=== PATIENT | female | born 1975 | race Caucasian/White ===

== ENCOUNTER 2017-01-11 11:25 | Observation (INO) | payer MEDICARE, OTHER ==
--- NOTE | ~2017-01-11 | OP ---
Record Of Operation [facility] [address] [place]. [address] NAME: HOSSEIN RODRÍGUEZ : 71 STATUS : ADM Sneha PAT#: [id number] AGE: 41 ADM/REG DATE : 01/11/17 MR#: [id number] REPORT SERV DATE: 01/11/17 DICTATED BY: FRANKO SERVIN DATE: 01/11/17 REPORT STATUS : Draft TRANSCRIBED BY: MODL DATE: 01/11/17 DATE OF PROCEDURE: 01/11/2017 PREOPERATIVE DIAGNOSIS: Ovarian mass. POSTOPERATIVE DIAGNOSIS: Bilateral ovarian cyst with multiple adhesions. PROCEDURE: 1. Laparoscopic lysis of adhesions CPT code 10774. 2. Bilateral salpingo-oophorectomy, CPT code 71453. SURGEON: Franko Servin M.D. and Mena Vasquez MD. ESTIMATED BLOOD LOSS: 100 mL. FLUIDS IN: 1600 mL of crystalloid. ANESTHESIA: General endotracheal. INDICATION AND FINDINGS: This is a 41-year-old female, who has had multiple previous abdominal procedures including hysterectomy and repair of ventral hernia with a large piece of mesh. She now has multiple adhesions of the colon and omentum to the anterior abdominal wall. Five laparoscopic trocars were placed in various places throughout the abdomen as so the robotic instrument could be used. She had extensive lysis of adhesions which encompassed greater than 90% of the entire operative time to remove. Both ovaries were ultimately removed including the gonadal vessel from the pelvic brim inferior. On the left, there were extensive adhesions of the colon. The ureter was also displaced laterally to avoid injury. Ultimately again both ovaries were removed and examined on the back table and appeared to be benign. Postprocedure, a cystoscopy was performed with excellent bilateral ureteral jets. No evidence of bladder defect. Prior to the induction of anesthesia, the patient was given Lovenox for DVT prophylaxis. PROCEDURE IN DETAIL: The patient was taken to the operating room. She was placed in supine position for administration of general anesthesia. She was then placed in dorsal lithotomy position and prepped and draped in usual sterile fashion. Initially, an incision was made in the midline and carried down to the underlying layer of fascia. Through this incision, we were not able to get in the abdomen. Therefore, a second incision was made over the left upper quadrant, carried down to the underlying layer of fascia. The fascia was incised. Rectus muscles the perineum, tented up and entered sharply, and laparoscopic trocar was placed under direct visualization. Additional 12 mm and two 8 mm trocars were placed, all under direct visualization, and both the original sites were examined without damage to the bowel. At this point, lysis of adhesions was undertaken using straight laparoscopic techniques as so the robotic machine could be used. Once the adhesions were adequately displaced, the patient was docked to the laparoscopic robotic instrument. Record Of Operation [facility] [address] [facility] [address] [place]. [address] NAME: HOSSEIN RODRÍGUEZ : 71 STATUS : ADM Sneha PAT#: [id number] AGE: 41 ADM/REG DATE : 01/11/17 MR#: [id number] REPORT SERV DATE: 01/11/17 DICTATED BY: FRANKO SERVIN DATE: 01/11/17 REPORT STATUS : Draft TRANSCRIBED BY: MODL DATE: 01/11/17 Additional lysis of adhesions was undertaken specifically on the left and right side of the pelvis. The retroperitoneal spaces were opened. The ureter and pelvic vessels were clearly identified. The gonadal vessels were isolated, and hemoclips were placed to ensure long- term hemostasis. Extensive lysis of adhesions on the left to displace the colon and ureter were then performed, and then both ovaries were removed placed into EndoCatch bags and delivered through the trocar sites. The pelvis was irrigated with copious amounts of warm water. Because of the extensive dissection on the left, Evicel was placed over the dissection area to ensure long-term hemostasis. At the completion of the procedure, a cystoscopy was performed with excellent bilateral ureteral jets. No evidence of bladder defect. At the completion of the procedure, air was also placed through the colon to ensure there was no damage to the colon. The laparoscopic instruments were removed. The gas was expelled from the abdomen. The initial incision was closed with 0 Vicryl in the fascia. The remainder of the incisions were closed with 4-0 Vicryl at the skin and Dermabond was placed. A cystoscopy was performed with the above findings noted. At the completion of the procedure, the anesthesia was reversed. The patient was extubated and brought to the recovery room in stable condition. JONATHAN/SARA Franko Servin M.D. / [id number] CC: Rosy Garrido D.O. F.A.C.P.
[~2017-01-11 11:25] MED LIST: ADDER10 PO; ADDERXR25 PO; AMIT25 PO; AMOX250 PO; ASAB PO; BAC PO; ESKALITH PO; HARD NAILS PO; HORMONE PO; HUMULIN R500 UNIT/1; HUMULIN U; IBU800 PO; LEVSINTAB PO; LOP25 PO; LORTAB 5 PO; LOVENOX SC; LOVENOX1C SC; LYRICA50 PO; NORCO1 TAB PO; PEP20 PO; PERCOCET1 TA4 PO; POTASSIUM OTC PO; PR12.5 PO; PRILO PO; PRILOSEC40 MG PO; PROGESTERONE PO; PYR200 PO; SAVELLA50 MG PO; SYN.05 PO; TOPAMAX100 PO; VESICARE5 PO; VITAMIN D31000 UNIT PO; VOLTAREN1 % TOP; ZANAFLEX 4 MG TA4 MG PO; ZANAFLEX2 MG PO; ZOFRAN4 PO; ZOL100 PO; ZONEGRAN PO; [UNRECOGNIZED DRUG - CODE] PO
[2017-01-11 12:02] LABS: BASOPHILS 0.2 %; BASOPHILS ABSOLUTE 0.02 10/3/uL (0.0-0.16); EOSINOPHILS ABSOLUTE 0.26 10/3/uL (0.0-0.53); HEMOGLOBIN 13.5 g/dL (12.0-16.0); IMMATURE GRANULOCYTES 0.2 %; IMMATURE GRANULOCYTES ABSOLUTE 0.03 10/3/uL (0.0-0.11); LYMPHOCYTES 31.3 %; LYMPHOCYTES ABSOLUTE 3.97 10/3/uL (0.67-4.30); MEAN CORPUSCULAR HEMOGLOB 28.4 pg (26.0-34.0); MEAN PLATELET VOLUME 8.8 fL (9.2-13.0); MONOCYTES 2.9 %; MONOCYTES ABSOLUTE 0.37 10/3/uL (0.21-1.20); NEUTROPHILS 63.4 %; NEUTROPHILS ABSOLUTE 8.05 10/3/uL (2.02-8.40); PLATELET COUNT 298 10/3/uL (150-400); RBC DISTRIBUTION WIDTH 13.6 % (12.0-16.0); RED CELL COUNT 4.76 10/6/uL (4.0-5.6); WHITE BLOOD CELLS 12.7 10/3/uL (4.5-10.5)
[2017-01-11 12:03] LABS: MANUAL DIFF NO %; MEAN CORPUS HGB CONC 33.8 g/dL (32.0-36.0)
[2017-01-11 12:13] LABS: BUN (BLOOD UREA NITROGEN) 9 MG/DL (6-23); CHLORIDE, SERUM 106 MMOL/L (96-112); CO2 (CARBON DIOXIDE) 27 MMOL/L (24-34); CREATININE 0.83 MG/DL (0.55-1.02); GFR AFRICAN AMERICAN 100 ML/MIN (>=60); GFR NON AFRICAN AMERICAN 86 ML/MIN (>=60); GLUCOSE, SERUM 151 MG/DL (60-99); POTASSIUM, SERUM 3.8 MMOL/L (3.5-5.3); SODIUM, SERUM 140 MMOL/L (135-148)
[2017-01-12 05:56] LABS: BUN (BLOOD UREA NITROGEN) 9 MG/DL (6-23); CALCIUM, SERUM 8.6 MG/DL (8.5-10.4); CHLORIDE, SERUM 106 MMOL/L (96-112); CO2 (CARBON DIOXIDE) 25 MMOL/L (24-34); CREATININE 0.84 MG/DL (0.55-1.02); GFR AFRICAN AMERICAN 99 ML/MIN (>=60); GFR NON AFRICAN AMERICAN 85 ML/MIN (>=60); GLUCOSE, SERUM 170 MG/DL (60-99); POTASSIUM, SERUM 3.8 MMOL/L (3.5-5.3); SODIUM, SERUM 141 MMOL/L (135-148)
[2017-01-12 07:07] LABS: BASOPHILS 0.1 %; BASOPHILS ABSOLUTE 0.02 10/3/uL (0.0-0.16); EOSINOPHILS 0 %; HEMATOCRIT 39.8 % (36.0-48.0); HEMOGLOBIN 13.1 g/dL (12.0-16.0); IMMATURE GRANULOCYTES 0.3 %; IMMATURE GRANULOCYTES ABSOLUTE 0.06 10/3/uL (0.0-0.11); LYMPHOCYTES 12.6 %; LYMPHOCYTES ABSOLUTE 2.23 10/3/uL (0.67-4.30); MANUAL DIFF NO %; MEAN CORPUS HGB CONC 32.9 g/dL (32.0-36.0); MEAN CORPUSCULAR HEMOGLOB 28.1 pg (26.0-34.0); MEAN CORPUSCULAR VOLUME 85.4 fL (80-100); MONOCYTES 3.6 %; MONOCYTES ABSOLUTE 0.64 10/3/uL (0.21-1.20); NEUTROPHILS 83.4 %; NEUTROPHILS ABSOLUTE 14.81 10/3/uL (2.02-8.40); PLATELET COUNT 351 10/3/uL (150-400); RBC DISTRIBUTION WIDTH 13.5 % (12.0-16.0); RED CELL COUNT 4.66 10/6/uL (4.0-5.6); WHITE BLOOD CELLS 17.8 10/3/uL (4.5-10.5)
[2017-01-12] MEDS ORDERED: PCET PO (15:08)
[2017-01-12] MEDS ORDERED: ZOFRAN4 (15:09)
[2017-06-21] MEDS ORDERED: HUMULIN-R CONCEN3 ML SC (14:55)
[2017-06-21] MEDS ORDERED: PRILO PO (14:56)
[2017-06-21] MEDS ORDERED: ZOL100 PO (14:56)
[2017-06-21] MEDS ORDERED: ESKALITH PO ×2 (14:56)
[2017-06-21] MEDS ORDERED: SAVELLA50 MG PO (14:57)
[2017-06-21] MEDS ORDERED: DITROPAN XL10 MG PO (14:57)
[2017-06-21] MEDS ORDERED: ADDERALL20 MG PO (14:58)
[2017-06-21] MEDS ORDERED: ZANAFLEX 4 MG TA4 MG PO (14:58)
[2017-06-21] MEDS ORDERED: NORCO1 TA2 PO (14:59)
[2017-06-21] MEDS ORDERED: IBU800 PO (15:00)
[2017-06-21] MEDS ORDERED: VOLTAREN1 % TOP (15:00)
[2017-06-21] MEDS ORDERED: ZOFRANODT8 PO (15:00)
[2017-06-21] MEDS ORDERED: LOP25 PO (15:01)
[2017-06-21] MEDS ORDERED: XIFAXAN (15:03)
== END 2017-01-12 17:21 | disposition home or self-care (01) ==
LOC: SDC 11:25 → 4EA 19:09
PROVIDERS: Obstetrics & Gynecology Gynecologic Oncology
PROC: 0UT24ZZ Resection of Bilateral Ovaries, Percutaneous Endoscopic Approach (ICD-10-PCS; principal; 2017-01-11 13:30)
PROC: 0UB74ZZ Excision of Bilateral Fallopian Tubes, Percutaneous Endoscopic Approach (ICD-10-PCS; 2017-01-11 13:30)
DX: N83.9 Noninflammatory disorder of ovary, fallopian tube and broad ligament, unspecified (principal); E11.9 Type 2 diabetes mellitus without complications; K21.9 Gastro-esophageal reflux disease without esophagitis; G47.33 Obstructive sleep apnea (adult) (pediatric); G43.909 Migraine, unspecified, not intractable, without status migrainosus
CPT/HCPCS: 36415; 80048; 82962; 84703; 85025; 86850; 86900; 86901; 88112; 88305; 93005; 96374; 96375; A9270-GY; G0378; J0330; J0694; J1170; J2250; J2405; J2550; J2710; J2795; J3010